=== PATIENT | female | born 1950 | race Caucasian/White ===

== ENCOUNTER → 2016-12-16 | Outpatient (CLI) | payer OTHER ==
--- NOTE | 2016-12-22 15:11 | RADONC ---
RADIATION ONCOLOGY FOLLOWUP NOTE: DATE OF SERVICE: 12/16/2016 CHART NO: [id number]. DIAGNOSIS: Right breast cancer. 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 The patient presents today reporting that she is doing quite well with no complaints at this time related to her radiation therapy or disease. She has no breast or bone pain. REVIEW OF SYSTEMS: The patient's review of systems is noncontributory. Denies nausea, vomiting, fevers, chills, night sweats, diplopia, headaches, anxiety or depression, anorexia, weight loss, visual disturbances, chest pain, urinary or bowel difficulties, bone pain, or neurological problems. PHYSICAL EXAMINATION: The patient is a well-developed, well-nourished female in no acute distress. HEENT exam is normocephalic, atraumatic. Extraocular movements are intact. There is no palpable cervical, supraclavicular, infraclavicular, axillary, or inguinal lymphadenopathy present. Lungs are clear to auscultation and percussion. Heart has a regular rate and rhythm. Abdomen is benign with no hepatosplenomegaly, masses, or tenderness. Breast examination reveals no masses or discharge bilaterally. Skeletal examination reveals no tenderness to pressure or percussion of the bony skeleton. Extremities reveal no clubbing, cyanosis, or edema. Neurologic exam is grossly intact, as is the remainder of the physical examination. ASSESSMENT: The patient is clinically JYOTI at this time and will be seen by us again in 6 months for further followup. She will also continue to be followed by her other physicians as well. cc: Herber Rossi MD *Temi Montes De Oca MD
== END ==
LOC: M ONCR 10:17
PROVIDERS: ATTEND Radiology Radiation Oncology
DX: Z08 Encounter for follow-up examination after completed treatment for malignant neoplasm (principal); C50.111 Malignant neoplasm of central portion of right female breast

== ENCOUNTER → 2017-02-22 | Outpatient (CLI) | payer MEDICARE, OTHER ==
--- NOTE | 2017-02-22 10:42 | REPMRS ---
Patient History The patient states she had a clinical breast exam in November 2016.Patient is postmenopausal and has history of cancer in the right breast at age 63. Family history of unknown cancer in father and breast cancer in mother. Malignant radio exam breast specimen of the right breast, April 18, 2013. Malignant localization of breast nodule of the right breast, April 18, 2013. Malignant stereotatic breast biopsy of the right breast, March 08, 2013. Benign stereotactic core biopsy of the left breast, 2004. Taking tamoxifen for 1 year 10 months. Digital Mammo Screening Bilat: February 22, 2017 - Exam #: [id number] Bilateral CC and MLO view(s) were taken. Technologist: Ximena Roberts, Technologist Prior study comparison: February 20, 2016, bilateral digital mammo screening bilat performed at [facility]. February 18, 2015, bilateral digital mammo screening bilat performed at [facility]. February 16, 2014, bilateral digital mammo screening bilat performed at [facility]. FINDINGS: There are scattered fibroglandular densities. There has been no change in the appearance of the mammogram from the prior studies. There is a needle biopsy marker clip in the left breast. There are stable post treatment changes in the right breast. There is a mild amount of scattered fibroglandular density which is fairly symmetric. There is no interval development of dominant mass, architectural distortion, or clustered microcalcification suggestive of malignancy. ASSESSMENT: BI-RADS/ACR category 1 mammogram. Negative. Recommendation Routine screening mammogram in 1 year (for women over age 40). This mammogram was interpreted with the aid of an FDA-approved computer-aided dectection system. Electronically Signed By: Yaw Rick MD 02/22/17 1042
== END ==
LOC: M RAD 10:03
PROVIDERS: ATTEND Radiology Radiation Oncology
DX: Z12.31 Encounter for screening mammogram for malignant neoplasm of breast (principal); Z85.3 Personal history of malignant neoplasm of breast

== ENCOUNTER → 2017-03-11 | Outpatient (CLI) | payer MEDICARE, OTHER ==
--- NOTE | 2017-03-11 17:03 | REP ---
PELVIC ULTRASOUND: Real-time sonographic evaluation of the pelvis was performed utilizing transabdominal and endovaginal technique. The bladder measures 9.8 x 10.0 x 11.7 cm. The uterus measures 9.6 x 5.4 x 8.6 cm. The endometrium is markedly thickened and heterogenous with multiple tiny cystic areas throughout. Endometrium measures 3 cm in maximum AP dimension. A focal hypoechoic area within the endometrial echo complex measures 3.9 x 3.4 x 3.4 cm, possibly representing a submucosal fibroid or polyp. Ovaries appear normal in size and echotexture, right ovary measuring 2.1 x 1.4 x 2.6 cm and left ovary 2.5 x 1.6 x 1.2 cm. There is no adnexal mass or free fluid. IMPRESSION: Markedly thickened endometrial echo complex with a maximum AP thickness of 3 cm. There is diffuse heterogeneity with multiple tiny cystic areas. Patient has post menopausal bleeding but also reportedly is on Tamoxifen therapy. Even though she is on Tamoxifen therapy, the history of postmenopausal bleeding and significant endometrial thickening may require hysteroscopy and endometrial sampling. In addition there is a suspected polyp or submucosal fibroid in the endometrium measuring 3.9 cm in maximum diameter.
== END ==
LOC: M WHC 13:50
PROVIDERS: ATTEND Nurse Practitioner Family
DX: Z51.81 Encounter for therapeutic drug level monitoring (principal); Z79.810 Long term (current) use of selective estrogen receptor modulators (SERMs); N95.0 Postmenopausal bleeding

== ENCOUNTER → 2017-04-13 | Outpatient (CLI) | payer MEDICARE, OTHER ==
[~2017-04-13] MED LIST: BIOT50005 PO; BLAC40CA2 PO; CALC600T57 PO; D 50CAP PO; MULT1TAB10 PO; TAMO20TA4 PO
--- NOTE | 2017-04-14 09:10 | DEXA ---
AP SPINE L1 - L4 1.203 0.1 1.7 LT FEMUR TOTAL 0.942 -0.5 0.7 RT FEMUR TOTAL 0.991 -0.1 1.1 TOTAL BODY TOTAL OTHER DUAL FEMUR FRAX* ASSESSMENT Risk factors: None. 10 year probability of fracture Major osteoporotic fracture 7.0 % Hip fracture 0.3 % COMMENTS: Normal bone densitometry of the spine and hips. The decreased density of the spine does not represent a significant change. The decreased density of the left hip does not represent a significant change. The increased density of the right hip does not represent a significant change. The density of the spine is decreased 4.4% since the initial exam on 05/26/2007. The spine density has decreased 0.2% since the most recent exam on 02/11/2012. The density of the left hip has decreased 3.0% since the initial exam on 2006. The density of the left hip has decreased 0.4% since the most recent exam on . The density of the right hip has decreased 1.8% since the initial exam on 2006. The density of the right hip has increased 0.4% since the most recent exam on . FOLLOW-UP: Recommendation for the next bone density exam: 5 years. GENEVIEVE
== END ==
LOC: M WHC 08:27
PROVIDERS: ATTEND Nurse Practitioner Family
DX: Z78.0 Asymptomatic menopausal state (principal); E28.39 Other primary ovarian failure; M85.88 Other specified disorders of bone density and structure, other site; M85.851 Other specified disorders of bone density and structure, right thigh; M85.852 Other specified disorders of bone density and structure, left thigh

== ENCOUNTER → 2017-04-15 | Day surgery (SDC) | payer MEDICARE, OTHER ==
[~2017-04-15] VITALS: Ht 172.7 cm; Wt 82.6 kg
[~2017-04-15] MED LIST changes: +IBUPROFEN 600 MG TAB PO PRN; +KETOROLAC 60 MG/2 ML VIAL (J1885) As Ordered ONE; +LIDOCAINE 2% INJ 100 MG/5 ML SDV (FOR ANES.) As Ordered ONE; +LR 1,000 ML IV ONE; +LR 1,000 ML IV SCH; +MEPERIDINE INJ 25 MG/ML VIAL (J2175) IV PRN; +METOCLOPRAMIDE INJ 10MG/2ML VIAL (J2765) IV PRN; +MIDAZOLAM INJ 2 MG/2 ML VIAL (J2250) As Ordered ONE; +ONDANSETRON 4MG/2ML VIAL (J2405) As Ordered ONE; +ONDANSETRON 4MG/2ML VIAL (J2405) IV PRN; +PERCOCET 5MG/325MG TAB PO PRN; +PROPOFOL 200 MG/20 ML VIAL As Ordered ONE; +dexameTHASONE 4 MG/ML 1ML VIAL (J1100) As Ordered ONE; +fentaNYL 100 MCG/2 ML INJECTION (J3010) As Ordered ONE; +fentaNYL 100 MCG/2 ML INJECTION (J3010) IV PRN
[2017-04-15 11:40] VITALS: BP 126/62
--- NOTE | 2017-04-16 15:17 | RO ---
DATE OF PROCEDURE: 04/15/2017 PREPROCEDURE DIAGNOSES/INDICATION FOR SURGERY: Postmenopausal bleeding and abnormal ultrasound, suspected fibroids. POSTPROCEDURE DIAGNOSES: Postmenopausal bleeding and abnormal ultrasound, suspected fibroids with confirmed submucosal fibroids in the endometrial cavity. PROCEDURE: Dilation and curettage (D and C), hysteroscopy and myomectomy. SURGEON: Dr. Liz Matthews CUPOLA REPAIRER: ANESTHESIA: LMA. DESCRIPTION OF PROCEDURE: Yolanda was brought to the operating room where sufficient LMA anesthesia was induced, and she was prepped, draped and positioned in the usual sterile fashion with the bladder emptied. She had a pessary in and so of course we took that out, prepped and then did the case and put it in after the case. At this point, I took the pessary out and grasped the anterior aspect of the cervix, dilated the cervix in order to allow the XL MyoSure to be placed and we found a large polypoid shaped submucosal fibroid sticking into the cavity. Initially I thought that this might be a polyp but with resection we were able to see myoma tissue. Also, at the fundus there was a second smaller myoma. We went ahead and placed the XL MyoSure. We removed the smaller myoma first. We had a view and then worked our way across the stalk of the larger myoma and then carefully chunked it up and removed it. There were some pictures to document this. There was a little bit of oozing from the base where we had taken off the base of that fibroid. Then did curettage and then massaged the uterus to squeeze it back down around this space now that it was no longer filled with myoma and then replaced the pessary at the end of the case. Estimated blood loss for the procedure was about 5 mL. Fluid replacement was crystalloid. Complications: None. Condition and Disposition: Yolanda tolerated the procedure well and was recovering in the recovery room in good condition.
== END | disposition home or self-care (01) ==
LOC: M SDC 06:57
PROVIDERS: ATTEND Obstetrics & Gynecology
DX: N95.0 Postmenopausal bleeding (principal); N84.0 Polyp of corpus uteri; D25.9 Leiomyoma of uterus, unspecified; Z92.3 Personal history of irradiation; Z85.3 Personal history of malignant neoplasm of breast; Z79.899 Other long term (current) drug therapy
CPT/HCPCS: 58145; 58558; 88305; J1100; J1885; J2250; J2405; J3010

== ENCOUNTER → 2017-07-14 | Outpatient (CLI) | payer MEDICARE, OTHER ==
[~2017-07-14] MED LIST changes: -IBUPROFEN 600 MG TAB PO PRN; -KETOROLAC 60 MG/2 ML VIAL (J1885) As Ordered ONE; -LIDOCAINE 2% INJ 100 MG/5 ML SDV (FOR ANES.) As Ordered ONE; -LR 1,000 ML IV ONE; -LR 1,000 ML IV SCH; -MEPERIDINE INJ 25 MG/ML VIAL (J2175) IV PRN; -METOCLOPRAMIDE INJ 10MG/2ML VIAL (J2765) IV PRN; -MIDAZOLAM INJ 2 MG/2 ML VIAL (J2250) As Ordered ONE; -ONDANSETRON 4MG/2ML VIAL (J2405) As Ordered ONE; -ONDANSETRON 4MG/2ML VIAL (J2405) IV PRN; -PERCOCET 5MG/325MG TAB PO PRN; -PROPOFOL 200 MG/20 ML VIAL As Ordered ONE; -dexameTHASONE 4 MG/ML 1ML VIAL (J1100) As Ordered ONE; -fentaNYL 100 MCG/2 ML INJECTION (J3010) As Ordered ONE; -fentaNYL 100 MCG/2 ML INJECTION (J3010) IV PRN
--- NOTE | 2017-07-15 13:09 | RADONC ---
RADIATION ONCOLOGY FOLLOWUP DATE: 07/14/2017 CHART NUMBER: [id number] DIAGNOSIS: Right breast cancer. STAGE: Stage is 0, [id number] ECOG PERFORMANCE STATUS: 0 Ms Silverio is a very pleasant 67-year-old white female with the diagnosis of a stage 0, [id number] ductal carcinoma in situ of the right breast who is presenting to us today for routine followup visit 4 years post completion of external beam radiation therapy. The patient presents today reporting that she is doing quite well with no complaints at this time related to her radiation therapy or disease. She has no breast or bone pain. REVIEW OF SYSTEMS: The patient's review of systems is noncontributory. Denies nausea, vomiting, fevers, chills, night sweats, diplopia, headaches, anxiety or depression, anorexia, weight loss, visual disturbances, chest pain, urinary or bowel difficulties, bone pain, or neurological problems. PHYSICAL EXAMINATION: The patient is a well-developed, well-nourished female in no acute distress. HEENT exam is normocephalic, atraumatic. Extraocular movements are intact. There is no palpable cervical, supraclavicular, infraclavicular, axillary, or inguinal lymphadenopathy present. Lungs are clear to auscultation and percussion. Heart has a regular rate and rhythm. Abdomen is benign with no hepatosplenomegaly, masses, or tenderness. Breast examination reveals no masses or discharge bilaterally. Skeletal examination reveals no tenderness to pressure or percussion of the bony skeleton. Extremities reveal no clubbing, cyanosis, or edema. Neurologic exam is grossly intact, as is the remainder of the physical examination. ASSESSMENT: The patient is clinically JYOTI at this time and will be seen by us again in 6 months for further followup. She will also continue to be followed by her other physicians as well. cc: MD Temi Clark MD
== END ==
LOC: M ONCR 08:55
PROVIDERS: ATTEND Radiology Radiation Oncology
DX: Z08 Encounter for follow-up examination after completed treatment for malignant neoplasm (principal); Z85.3 Personal history of malignant neoplasm of breast

== ENCOUNTER → 2017-07-14 | Outpatient (CLI) | payer MEDICARE, OTHER ==
[2017-07-14 09:32] LABS: ANION GAP 9 MEQ/L (8-16); BLOOD UREA NITROGEN 16 MG/DL (7-18); CALCIUM LEVEL 8.6 MG/DL (8.8-10.2); CARBON DIOXIDE LEVEL 28 MEQ/L (21-32); CHLORIDE LEVEL 104 MEQ/L (98-107); CHOLESTEROL LEVEL 181 MG/DL (<200); CREATININE FOR GFR 0.74 MG/DL (0.55-1.02); FREE T4 1.11 NG/DL (0.76-1.46); GLOMERULAR FILTRATION RATE > 60.0 (>45); GLUCOSE, FASTING 95 MG/DL (80-110); POTASSIUM SERUM 4.3 MEQ/L (3.5-5.1); SODIUM LEVEL 141 MEQ/L (136-145); TRIGLYCERIDES LEVEL 141 MG/DL (<150)
== END ==
LOC: M WUC 08:15
PROVIDERS: ATTEND Physician Assistant Medical
DX: R73.01 Impaired fasting glucose (principal); R94.6 Abnormal results of thyroid function studies; E55.9 Vitamin D deficiency, unspecified
CPT/HCPCS: 36415; 80048; 80061; 82306; 84439; 84443; G0463

== ENCOUNTER → 2017-07-28 | Outpatient (REF) | payer MEDICARE, OTHER | LOC: M LAB REF 16:21 | PROVIDERS: ATTEND Obstetrics & Gynecology | DX: N32.81 Overactive bladder (principal); N39.46 Mixed incontinence; N81.11 Cystocele, midline ==

== ENCOUNTER → 2018-01-05 | Outpatient (CLI) | payer MEDICARE, OTHER | LOC: M ONCR 09:10 | DX: D05.11 Intraductal carcinoma in situ of right breast (principal) | CPT/HCPCS: G0463 ==

== ENCOUNTER → 2018-03-02 | Outpatient (CLI) | payer MEDICARE, OTHER | LOC: M RAD 08:24 | DX: Z12.31 Encounter for screening mammogram for malignant neoplasm of breast (principal); N60.31 Fibrosclerosis of right breast; N60.32 Fibrosclerosis of left breast | CPT/HCPCS: 77067 ==

== ENCOUNTER → 2018-12-22 | Outpatient (CLI) | payer MEDICARE, OTHER ==
[~2018-12-22] MED LIST changes: -TAMO20TA4 PO; +TAMO20TA8 PO
--- NOTE | 2018-12-22 15:11 | REP ---
Clinical: Postmenopausal bleeding . Technique: Transabdominal pelvic ultrasound followed by transvaginal examination for better evaluation of the endometrium and adnexa. Findings: Bladder is unremarkable and measures 10.6 x 10.6 x 9.5 cm . Heterogeneous retroverted uterus measures 9.4 x 5.2 x 8.0 cm. The endometrial complex is heterogeneous and thickened measuring between 11.5 and 28.1 mm. Along the left side of the endometrium is a vague heterogeneous mass measuring approximately 4.2 x 3.2 x 3.6 cm which may reflect submucosal fibroid or possible endometrial lesion such as mass/polyp. Bilateral ovaries are normal in appearance. Right ovary measures 2.7 x 1.7 x 1.7 cm ; Left ovary measures 2.1 x 1.3 x 1.1 cm. No pelvic fluid or adnexal mass lesion . Impression: 1. Heterogeneous retroverted uterus with considerably thickened endometrium and possible submucosal fibroid versus endometrial mass/polyp. 2. Bilateral ovaries appear normal.
== END ==
LOC: M WHC 12:55
PROVIDERS: ATTEND Nurse Practitioner Family
DX: N95.0 Postmenopausal bleeding (principal); R93.89 Abnormal findings on diagnostic imaging of other specified body structures; N85.4 Malposition of uterus; R19.09 Other intra-abdominal and pelvic swelling, mass and lump

== ENCOUNTER → 2019-01-18 | Outpatient (REF) | payer MEDICARE, OTHER ==
[~2019-01-18] MED LIST changes: +MULTCAP PO
[2019-01-18 19:09] LABS: ALBUMIN 3.8 GM/DL (3.2-5.2); ALT/SGPT 30 U/L (12-78); BILIRUBIN,TOTAL 0.3 MG/DL (0.2-1.0); BLOOD UREA NITROGEN 17 MG/DL (7-18); CALCIUM LEVEL 8.8 MG/DL (8.8-10.2); CARBON DIOXIDE LEVEL 28 MEQ/L (21-32); CHLORIDE LEVEL 105 MEQ/L (98-107); CREATININE FOR GFR 0.75 MG/DL (0.55-1.30); GLOMERULAR FILTRATION RATE > 60.0 (>45); GLUCOSE, FASTING 85 MG/DL (70-100); POTASSIUM SERUM 4.2 MEQ/L (3.5-5.1); SODIUM LEVEL 141 MEQ/L (136-145); TOTAL PROTEIN 7.4 GM/DL (6.4-8.2)
[2019-01-18 19:18] LABS: BASO # 0.1 10^3/uL (0.0-0.2); BASO % 0.7 % (0.0-1.0); EOS # 0.2 10^3/uL (0.0-0.50); EOS % 2.5 % (0.0-3.0); HEMOGLOBIN 12.3 g/dl (12.0-15.5); LYMPH # 2.8 10^3/uL (1.5-4.5); LYMPH % 29.7 % (24.0-44.0); MEAN CORPUSCULAR HEMOGLOBIN 28.6 pg (27.0-33.0); MEAN CORPUSCULAR HGB CONC 31.5 g/dl (32.0-36.5); MEAN CORPUSCULAR VOLUME 90.7 fl (80.0-96.0); MONO # 0.8 10^3/uL (0.0-0.8); NEUTROPHILS # 5.6 10^3/uL (1.8-7.7); NEUTROPHILS % 58.7 % (36.0-66.0); PLATELET COUNT, AUTOMATED 273 10^3/uL (150-450); WHITE BLOOD COUNT 9.6 10^3/uL (4.0-10.0)
== END ==
LOC: M LAB REF 17:12 → M WUC 17:12
PROVIDERS: ATTEND Family Medicine
DX: Z01.818 Encounter for other preprocedural examination (principal); N95.0 Postmenopausal bleeding

== ENCOUNTER 2019-02-02 08:20 | Day surgery (SDC) | payer MEDICARE, OTHER ==
[~2019-02-02] VITALS: Ht 172.7 cm; Wt 92.9 kg
[2019-02-02] MEDS ORDERED: LR 1,000 ML IV ONE (08:30)
[2019-02-02] MEDS ORDERED: SCOPOLAMINE 1MG TRANSDERMAL PATCH TOP ONE (09:00)
[2019-02-02] MEDS ORDERED: ONDANSETRON 4MG/2ML VIAL (J2405) As Ordered ONE (09:02)
[2019-02-02] MEDS ORDERED: LIDOCAINE 2% INJ 100 MG/5 ML SDV (FOR ANES.) As Ordered ONE (09:02)
[2019-02-02] MEDS ORDERED: KETOROLAC 60 MG/2 ML VIAL (J1885) As Ordered ONE (09:02)
[2019-02-02] MEDS ORDERED: dexameTHASONE 4 MG/ML 1ML VIAL (J1100) As Ordered ONE (09:02)
[2019-02-02] MEDS ORDERED: PROPOFOL 200 MG/20 ML VIAL As Ordered ONE (09:02)
[2019-02-02] MEDS ORDERED: MIDAZOLAM INJ 2 MG/2 ML VIAL (J2250) As Ordered ONE (09:02)
[2019-02-02] MEDS ORDERED: fentaNYL 100 MCG/2 ML INJECTION (J3010) As Ordered ONE (09:03)
[2019-02-02] MEDS ORDERED: ACETAMINOPHEN 1000MG 100ML IV BTL (OFIRMEV) (J0131 PER 10MG) As Ordered ONE (10:11)
--- NOTE | 2019-02-02 10:56 | RO ---
DATE OF SURGERY: 02/02/2019 PREOPERATIVE DIAGNOSIS AND INDICATION FOR SURGERY: Postmenopausal bleeding with abnormal ultrasound. POSTOPERATIVE DIAGNOSES: Postmenopausal bleeding with abnormal ultrasound with additional diagnosis of fibroid. PROCEDURE: Dilation and curettage (D and C), hysteroscopy, myomectomy. SURGEON: Liz Matthews MD [employer] CONSULTANT: None. ANESTHESIA: Laryngeal mask airway (LMA) anesthesia. BRIEF DESCRIPTION OF PROCEDURE AND FINDINGS: Yolanda was brought to the operating room, where sufficient LMA anesthesia was induced. She was prepped, draped, and positioned in the usual sterile fashion with the bladder emptied and the cervix grasped with a single-tooth tenaculum. This uterus would be accessible from below should that become necessary in the future. The cervix was carefully dilated in order to allow introduction of the hysteroscope, which showed a large broad-based fibroid covering almost the whole left lateral aspect of the uterus, as is documented in the photograph. We placed the MyoSure REACH and slowly resected this entity. We were able to just gradually work our way through this broad-based fibroid and remove it. We also sampled the endometrium and carried out curettage and then ended the procedure. Estimated blood loss for the procedure was maybe 5 mL. Fluid replacement was crystalloid. COMPLICATIONS: None. SPECIMENS: Fibroid and some endometrium. CONDITION AND DISPOSITION: Yolanda tolerated the procedure well and was recovering in the recovery room in good condition.
[2019-02-02] MEDS ORDERED: LR 1,000 ML IV SCH ×2 (11:15)
[2019-02-02] MEDS ORDERED: oxyCODONE 5MG TAB PO PRN (11:15)
[2019-02-02] MEDS ORDERED: fentaNYL 100 MCG/2 ML INJECTION (J3010) IV PRN (11:15)
[2019-02-02] MEDS ORDERED: IBUPROFEN 600 MG TAB PO PRN (11:15)
[2019-02-02] MEDS ORDERED: ONDANSETRON 4MG/2ML VIAL (J2405) IV PRN (11:15)
[2019-02-02 12:05] VITALS: BP 137/63
--- NOTE | 2019-02-02 16:15 | RO ---
DATE OF PROCEDURE: 02/02/2019 PREOPERATIVE DIAGNOSES/INDICATION FOR SURGERY: Bleeding, abnormal sono. POSTOPERATIVE DIAGNOSES: Bleeding, abnormal sono, large fibroid. PROCEDURE: Dilation and curettage (D and C), hysteroscopy, myomectomy. SURGEON: Liz Matthews MD BROTHEL KEEPER: None. ANESTHESIA: Laryngeal mask airway (LMA). BRIEF DESCRIPTION OF PROCEDURE AND FINDINGS: Yolanda was brought to the operating room where sufficient LMA anesthesia was induced. She was prepped, draped and positioned in the usual sterile fashion with the bladder emptied and the cervix grasped with a single-tooth tenaculum. This uterus would be accessible from below should that become necessary in the future. The cervix was then carefully dilated in order to allow introduction of the hysteroscope and they MyoSure REACH resector was place after a large fibroid extending along the left lower aspect of the uterus. It was noted this that was resected in its entirety. Pictures were taken to document this progress, and after completion of that we also sampled endometrium, following which, the procedure was ended. Estimated blood loss for procedure was maybe 8 mL. Fluid replacement was crystalloid. Complications none. CONDITION AND DISPOSITION: Yolanda tolerated the procedure well and was recovering in the recovery room in good condition.
== END 2019-02-02 12:16 | disposition home or self-care (01) ==
LOC: M SDC 08:20
PROVIDERS: ATTEND Obstetrics & Gynecology
DX: N95.0 Postmenopausal bleeding (principal); N85.01 Benign endometrial hyperplasia; Z85.3 Personal history of malignant neoplasm of breast; Z92.3 Personal history of irradiation
CPT/HCPCS: 58145; 58558; 88305; J0131; J1100; J1885; J2250; J2405; J3010

== ENCOUNTER → 2019-03-06 | Outpatient (CLI) | payer MEDICARE, OTHER ==
--- NOTE | 2019-03-06 08:55 | REPMRS ---
Patient History The patient states she had a clinical breast exam in December 2018. Patient is postmenopausal and has history of cancer in the right breast at age 63. Family history of breast cancer in mother, unknown cancer in father. Malignant radio exam breast specimen of the right breast, April 18, 2013. Malignant localization of breast nodule of the right breast, April 18, 2013. Malignant stereotatic breast biopsy of the right breast, March 08, 2013. Benign stereotactic core biopsy of the left breast, 2004. Took tamoxifen for 1 year 10 months. 3D TOMOSYNTHESIS WAS PERFORMED. Digital Mammo Screening Bilat: March 06, 2019 - Exam #: [id number] Bilateral CC and MLO view(s) were taken. Technologist: Leida Mckenzie, Technologist Prior study comparison: March 02, 2018, bilateral digital mammo screening bilat performed at [facility]. February 22, 2017, bilateral digital mammo screening bilat performed at [facility]. FINDINGS: The breast tissue is heterogeneously dense. This may lower the sensitivity of mammography. There has been no change in the appearance of the mammogram from the prior studies. There is a moderate amount of residual fibroglandular tissue which is fairly symmetric. There is no interval development of dominant mass, areas of architectural distortion, or clustered microcalcification typical of malignancy. Assessment: BI-RADS/ACR category 1 mammogram. Negative Mammogram. Recommendation Routine screening mammogram in 1 year (for women over age 40). This mammogram was interpreted with the aid of an FDA-approved computer-aided dectection system. Electronically Signed By: Jose Izaguirre MD 03/06/19 0839
== END ==
LOC: M RAD 08:14
PROVIDERS: ATTEND Radiology Radiation Oncology
DX: Z12.31 Encounter for screening mammogram for malignant neoplasm of breast (principal); Z85.3 Personal history of malignant neoplasm of breast; Z80.3 Family history of malignant neoplasm of breast

== ENCOUNTER → 2019-05-26 | Outpatient (REF) | payer MEDICARE, OTHER | LOC: M SFHCWAGY 09:58 | PROVIDERS: ATTEND Nurse Practitioner Family | DX: Z12.4 Encounter for screening for malignant neoplasm of cervix (principal) | CPT/HCPCS: G0101; G0123 ==

== ENCOUNTER → 2019-12-08 | Outpatient (CLI) | payer MEDICARE, OTHER ==
--- NOTE | 2019-12-08 14:43 | REP ---
PELVIC SONOGRAPHY: HISTORY: History of postmenopausal bleeding. Status post D and C 1 year prior. Comparison study December 22, 2018. FINDINGS: The uterus is retroverted and has dimensions of 8.5 x 4.5 x 6.9 cm. Endometrial echo is 1.1 cm thick. It is somewhat ill-defined. There are two echogenic structures visualized in the endometrial canal measuring 1.3 and 1.2 cm in greatest diameter respectively. Uterine myometrium is heterogeneous similar to the prior study. There is evidence of a left uterine fibroid measuring 3.1 x 3.4 x 2.9 cm. There is a fundal hypoechoic area measuring 2.1 x 1.5 x 1.5 cm. In the lower uterine segment there is a 1.4 cm fibroid. Normal right ovary seen measuring 2.8 x 1.2 x 1.1 cm. Left ovary dimensions are 2.7 x 1.2 x 1.0 cm. There is a 0.6 cm cystic area in the left ovary. No free fluid is noted. IMPRESSION: Retroverted fibroid uterus. There are two endometrial nodular structures suggestive of endometrial polyps versus submucosal fibroids. Endometrial thickness 1.1 cm. Unremarkable ovaries.
== END ==
LOC: M WHC 12:55
PROVIDERS: ATTEND Obstetrics & Gynecology
DX: N95.0 Postmenopausal bleeding (principal); D25.9 Leiomyoma of uterus, unspecified

== ENCOUNTER → 2020-01-03 | Outpatient (CLI) | payer MEDICARE, OTHER ==
--- NOTE | 2020-01-03 10:35 | RADONC ---
RADIATION ONCOLOGY FOLLOWUP NOTE DATE OF SERVICE: 01/03/2020 This is a telemedicine visit. The patient was informed of the risks including security breech, technological failure, inability to perform a comprehensive physical exam which could delay or prevent an accurate diagnosis, and potential complications from treatment decisions rendered over a telemedicine platform. The patient understands and consented to the use of telehealth services phone only. CHART NUMBER: [id number] DIAGNOSIS: Right breast cancer. STAGE: Stage 0, [id number] ECOG PERFORMANCE STATUS: 0. FOLLOWUP NOTE: Ms. Silverio is a very pleasant 70-year-old white female with the diagnosis of a stage 0, [id number] ductal carcinoma in situ of the right breast who is presenting to us by telephone today for routine followup visit 7 years post completion of external beam radiation therapy. The patient reports that she is doing quite well with no complaints at this time related to her radiation therapy disease. She has no significant breast or bone pain. The patient's review of systems is noncontributory. Denies nausea, vomiting, fevers, chills, night sweats, diplopia, headaches, anxiety or depression, anorexia, weight loss, visual disturbances, chest pain, urinary or bowel difficulties, bone pain, or neurological problems. PHYSICAL EXAMINATION Physical examination was deferred as this was a telephone consult, as per COVID-19 precautions. ASSESSMENT: Ms. Silverio is doing quite well at this point. She is scheduled to see her primary care Dr. Temi Montes De Oca tomorrow, and I have asked to have Dr. Bosch scheduled her routine mammograms. I will be retiring within the next 3 months or so and this patient is 7 years out. She can continue her routine followup with her primary care physician. I am not ordering a new mammogram myself because the results may come after I have departed and I want to make sure that they are received by her primary care doctor. cc: MD Temi Clark MD
== END ==
LOC: M ONCR 09:56
PROVIDERS: ATTEND Radiology Radiation Oncology
DX: D05.11 Intraductal carcinoma in situ of right breast (principal); Z92.3 Personal history of irradiation

== ENCOUNTER → 2020-01-04 | Outpatient (CLI) | payer MEDICARE, OTHER ==
[2020-01-04 12:50] LABS: BASO # 0.1 10^3/uL (0.0-0.2); BASO % 0.8 % (0.0-1.0); EOS # 0.2 10^3/uL (0.0-0.5); EOS % 1.8 % (0.0-3.0); HEMATOCRIT 38.5 % (36.0-47.0); HEMOGLOBIN 12.9 g/dl (12.0-15.5); LYMPH # 2.3 10^3/uL (1.5-5.0); LYMPH % 25.5 % (24.0-44.0); MEAN CORPUSCULAR HEMOGLOBIN 29.6 pg (27.0-33.0); MEAN CORPUSCULAR HGB CONC 33.5 g/dl (32.0-36.5); MEAN CORPUSCULAR VOLUME 88.3 fl (80.0-96.0); MONO # 0.6 10^3/uL (0.0-0.8); MONO % 6.9 % (0.0-5.0); NEUTROPHILS # 5.8 10^3/uL (1.5-8.5); NEUTROPHILS % 64.8 % (36.0-66.0); PLATELET COUNT, AUTOMATED 288 10^3/uL (150-450); RED BLOOD COUNT 4.36 10^6/uL (4.00-5.40)
[2020-01-04 13:03] LABS: INR 1.13; PROTHROMBIN TIME 14.2 SECONDS (11.8-14.0)
[2020-01-04 13:04] LABS: PARTIAL THROMBOPLASTIN TIME 27.7 SECONDS (25.0-38.4)
[2020-01-04 13:36] LABS: ALBUMIN 3.8 GM/DL (3.2-5.2); ALT/SGPT 22 U/L (12-78); BILIRUBIN,TOTAL 0.5 MG/DL (0.2-1.0); BLOOD UREA NITROGEN 12 MG/DL (7-18); CALCIUM LEVEL 9.1 MG/DL (8.8-10.2); CARBON DIOXIDE LEVEL 28 MEQ/L (21-32); CHLORIDE LEVEL 106 MEQ/L (98-107); CREATININE FOR GFR 0.75 MG/DL (0.55-1.30); GLOMERULAR FILTRATION RATE > 60.0 (>45); GLUCOSE, FASTING 94 MG/DL (70-100); POTASSIUM SERUM 4.2 MEQ/L (3.5-5.1); SODIUM LEVEL 140 MEQ/L (136-145); TOTAL PROTEIN 7.7 GM/DL (6.4-8.2)
== END ==
LOC: M WUC 11:26
PROVIDERS: ATTEND Nurse Practitioner Family
DX: Z01.818 Encounter for other preprocedural examination (principal)

== ENCOUNTER 2020-01-11 06:01 | Day surgery (SDC) | payer MEDICARE, OTHER ==
[~2020-01-11] VITALS: Ht 170.2 cm; Wt 95.7 kg
[~2020-01-11 06:01] MED LIST changes: +LIDOCAINE 1% MDV 20ML VIAL SQ PRN; +MEDR5TAB3 PO; +MYRB25TA PO
[2020-01-11] MEDS ORDERED: LR 1,000 ML IV ONE (06:15)
[2020-01-11] MEDS ORDERED: ONDANSETRON 4MG/2ML VIAL As Ordered ONE (07:06)
[2020-01-11] MEDS ORDERED: propofoL 200 MG/20 ML VIAL As Ordered ONE (07:06)
[2020-01-11] MEDS ORDERED: LIDOCAINE 2% 100MG/5ML SDV (FOR ANES.) As Ordered ONE (07:06)
[2020-01-11] MEDS ORDERED: dexameTHASONE 4 MG/ML 1ML VIAL (J1100 PER 1MG) As Ordered ONE (07:06)
[2020-01-11] MEDS ORDERED: SCOPOLAMINE 1MG TRANSDERMAL PATCH As Ordered ONE (07:06)
[2020-01-11] MEDS ORDERED: fentaNYL 100 MCG/2 ML INJECTION (J3010) As Ordered ONE (07:07)
[2020-01-11] MEDS ORDERED: MIDAZOLAM INJ 2MG/2ML VIAL (J2250 PER 1MG) As Ordered ONE (07:07)
[2020-01-11] MEDS ORDERED: SCOPOLAMINE 1MG TRANSDERMAL PATCH TOP ONE (07:15)
[2020-01-11] MEDS ORDERED: ACETAMINOPHEN 1000MG 100ML IV BTL (OFIRMEV) (J0131 PER 10MG) As Ordered ONE (07:46)
[2020-01-11] MEDS ORDERED: KETOROLAC 60 MG/2 ML VIAL As Ordered ONE (07:46)
[2020-01-11] MEDS ORDERED: ePHEDrine SULFATE 25 MG/5 ML(5MG/ML) SYRINGE As Ordered ONE (07:51)
[2020-01-11] MEDS ORDERED: IBUPROFEN 600 MG TAB PO PRN (08:30)
[2020-01-11] MEDS ORDERED: fentaNYL 100 MCG/2 ML INJECTION (J3010) IV PRN (08:30)
[2020-01-11] MEDS ORDERED: METOCLOPRAMIDE INJ 10MG/2ML VIAL (J2765 PER 1) IV PRN (08:30)
[2020-01-11] MEDS ORDERED: ONDANSETRON 4MG/2ML VIAL IV PRN (08:30)
[2020-01-11] MEDS ORDERED: LR 1,000 ML IV SCH ×2 (08:30)
[2020-01-11] MEDS ORDERED: PERCOCET 5MG/325MG TAB PO PRN (08:30)
--- NOTE | 2020-01-11 09:05 | RO ---
DATE OF PROCEDURE: 01/11/2020 PREPROCEDURE DIAGNOSES: Post menopausal bleeding, thickened endometrium. Significant history of breast cancer. POSTPROCEDURE DIAGNOSES: Post menopausal bleeding, thickened endometrium. Significant history of breast cancer. Additional diagnosis of what appears to have been a submucous fibroid. PROCEDURE: Dilation and curettage, hysteroscopy, myomectomy using the MyoSure device. SURGEON: Dr. Liz Matthews. WOOL PRESSER: None. ANESTHESIA: Laryngeal mask anesthesia (LMA). DESCRIPTION OF PROCEDURE: Yolanda was brought to the operating room where sufficient LMA anesthesia was induced. She was prepped, draped and positioned in the usual sterile fashion. Bladder was emptied. The cervix was grasped with a single tooth tenaculum. This patient does have some mild prolapse and the uterus was readily accessible from below. The cervix was carefully dilated and the MyoSure hysteroscope placed. Upon visualization of the endometrial cavity, some suppression consistent with her history of progesterone in the past was noted and along the patient's right lateral, slight to the posterior uterus, there is a couple of tiny polyps and then just to the left of midline posterior fundus, a broad-based, what appears to be submucous fibroid. Multiple pictures were taken and the MyoSure reach was used and using the reach, we dug out that posterior projection and the tissues appeared, as they were removed to be myoma as well both by picture and visual appearance. We also removed the tiny polyps, which were fairly avascular and really had a very reassuring appearance. We then sampled the rest of what was there for endometrium, which was not particularly much. The went ahead and did a couple passes with the curet before finishing the case. Pictures were taken to document our progress. With the procedure ended, ESTIMATED BLOOD LOSS: About 3 mL. FLUID REPLACEMENT: Crystalloid. SPECIMENS: Myoma and endometrium that when through the MyoSure collection. COMPLICATIONS: None. CONDITION AND DISPOSITION: Yolanda tolerated the procedure well and was recovering in the recovery room in good condition.
[2020-01-11 10:03] VITALS: BP 169/83
== END 2020-01-11 10:20 | disposition home or self-care (01) ==
LOC: M SDC 06:01
PROVIDERS: ATTEND Obstetrics & Gynecology
DX: D25.9 Leiomyoma of uterus, unspecified (principal); N84.9 Polyp of female genital tract, unspecified; N85.01 Benign endometrial hyperplasia; Z85.3 Personal history of malignant neoplasm of breast; R32 Unspecified urinary incontinence; Z92.3 Personal history of irradiation; Z79.899 Other long term (current) drug therapy; Z79.890 Hormone replacement therapy
CPT/HCPCS: 58558; 88305; J0131; J1100; J1885; J2250; J2405; J3010

== ENCOUNTER → 2020-03-07 | Outpatient (CLI) | payer MEDICARE, OTHER ==
[~2020-03-07] MED LIST changes: -LIDOCAINE 1% MDV 20ML VIAL SQ PRN
--- NOTE | 2020-03-07 14:26 | REPMRS ---
Patient History The patient states she has not had a clinical breast exam in over a year. Family history of breast cancer in mother, unknown cancer in father. Malignant radio exam breast specimen of the right breast, April 18, 2013. Malignant localization of breast nodule of the right breast, April 18, 2013. Malignant stereotatic breast biopsy of the right breast, March 08, 2013. Benign stereotactic core biopsy of the left breast, 2004. Took tamoxifen for 1 year 10 months. Digital Woman Screen Mammo: March 07, 2020 - Exam #: [id number] Bilateral CC and MLO view(s) were taken. Technologist: Leida Mckenzie, Technologist Prior study comparison: March 06, 2019, bilateral digital mammo screening bilat, performed at [facility]. March 02, 2018, bilateral digital mammo screening bilat, performed at [facility]. February 22, 2017, bilateral digital mammo screening bilat, performed at [facility]. FINDINGS: The breast tissue is heterogeneously dense. This may lower the sensitivity of mammography. The Volpara volumetric breast density category is: C. A needle biopsy marker clip is again noted on the left. There are stable post-treatment changes again noted on the right. There is a moderate amount of heterogeneously dense fibroglandular tissue which is fairly symmetric. There is no interval development of dominant mass, architectural distortion, or grouped microcalcification typical of malignancy. There has been no change in the appearance of the mammogram from the prior studies. 3-D tomosynthesis shows no additional findings. Assessment: BI-RADS/ACR category 2 mammogram. Benign Findings. Recommendation Routine screening mammogram of both breasts in 1 year (for women over age 40). This mammogram was interpreted with the aid of an FDA-approved computer-aided dectection system. Electronically Signed By: Yaw Rick MD 03/07/20 3513
== END ==
LOC: M WHC 12:51
PROVIDERS: ATTEND Nurse Practitioner Family
DX: Z12.31 Encounter for screening mammogram for malignant neoplasm of breast (principal); Z80.3 Family history of malignant neoplasm of breast

== ENCOUNTER → 2021-03-11 | Outpatient (CLI) | payer MEDICARE, OTHER ==
--- NOTE | 2021-03-11 08:43 | REPMRS ---
Patient History The patient states she had a clinical breast exam in May 2020. Family history of breast cancer in mother, unknown cancer in father. Malignant radio exam breast specimen of the right breast, April 18, 2013. Malignant localization of breast nodule of the right breast, April 18, 2013. Malignant stereotatic breast biopsy of the right breast, March 08, 2013. Benign stereotactic core biopsy of the left breast, 2004. Took tamoxifen for 1 year 10 months. Patient states no breast complaints today. Patient has signed MRS History Sheet. Digital Woman Screen Mammo: March 11, 2021 - Exam #: [id number] Bilateral CC and MLO view(s) were taken. Technologist: Yaneli Diego, Technologist Prior study comparison: March 07, 2020, bilateral digital woman screen mammo performed at [facility]. March 06, 2019, bilateral digital mammo screening bilat, performed at [facility]. March 02, 2018, bilateral digital mammo screening bilat, performed at [facility]. FINDINGS: The breast tissue is heterogeneously dense. This may lower the sensitivity of mammography. The Volpara volumetric breast density category is: C. Stable post treatment changes are again noted in the right breast. There is a moderate amount of heterogeneously dense fibroglandular tissue which is fairly symmetric. There is no interval development of dominant mass, architectural distortion, or grouped microcalcification typical of malignancy. There has been no change in the appearance of the mammogram from the prior studies. 3-D tomosynthesis shows no additional findings. Assessment: BI-RADS/ACR category 2 mammogram. Benign Findings. Recommendation Routine screening mammogram of both breasts in 1 year (for women over age 40). This mammogram was interpreted with the aid of an FDA-approved computer-aided dectection system. Electronically Signed By: Yaw Rick MD 03/11/21 [id number]
== END ==
LOC: M WHC 07:56
PROVIDERS: ATTEND Nurse Practitioner Family
DX: Z12.31 Encounter for screening mammogram for malignant neoplasm of breast (principal); Z80.3 Family history of malignant neoplasm of breast; Z85.3 Personal history of malignant neoplasm of breast

== ENCOUNTER → 2021-06-19 | Outpatient (CLI) | payer MEDICARE, OTHER ==
[2021-06-19 11:32] LABS: ALBUMIN 3.7 GM/DL (3.2-5.2); ALT/SGPT 21 U/L (12-78); BILIRUBIN,TOTAL 0.5 MG/DL (0.2-1.0); BLOOD UREA NITROGEN 18 MG/DL (7-18); CALCIUM LEVEL 8.6 MG/DL (8.8-10.2); CARBON DIOXIDE LEVEL 31 MEQ/L (21-32); CHLORIDE LEVEL 105 MEQ/L (98-107); CHOLESTEROL LEVEL 198 MG/DL (<200); CREATININE FOR GFR 0.84 MG/DL (0.55-1.30); GLOMERULAR FILTRATION RATE > 60.0 (>45); GLUCOSE, FASTING 94 MG/DL (70-100); HDL CHOLESTEROL 49 MG/DL (>40); LDL CHOLESTEROL 128 MG/DL (<100); NON-HDL-C 149 MG/DL; POTASSIUM SERUM 4.2 MEQ/L (3.5-5.1); SODIUM LEVEL 140 MEQ/L (136-145); TOTAL PROTEIN 7.4 GM/DL (6.4-8.2); TRIGLYCERIDES LEVEL 103 MG/DL (<150)
== END ==
LOC: M WUC 09:27
PROVIDERS: ATTEND Nurse Practitioner Family
DX: Z00.00 Encounter for general adult medical examination without abnormal findings (principal)

== ENCOUNTER → 2021-08-21 | Outpatient (CLI) | payer MEDICARE, OTHER ==
[~2021-08-21] MED LIST changes: +VITMTA PO
== END ==
LOC: M LABSMTC 09:07
PROVIDERS: ATTEND Anesthesiology
DX: Z01.812 Encounter for preprocedural laboratory examination (principal); Z20.822 Contact with and (suspected) exposure to COVID-19

== ENCOUNTER 2021-08-26 07:10 | Day surgery (SDC) | payer MEDICARE, OTHER ==
[~2021-08-26] VITALS: Ht 172.7 cm; Wt 91.4 kg
[~2021-08-26 07:10] MED LIST changes: +NS 1,000 ML IV ONE
[2021-08-26] MEDS ORDERED: propofoL 200 MG/20 ML VIAL As Ordered ONE (07:14)
[2021-08-26] MEDS ORDERED: LIDOCAINE 2% 100MG/5ML SDV (FOR ANES.) As Ordered ONE (07:14)
--- NOTE | 2021-08-26 08:58 | ROOR ---
Patient Name: Yolanda Silverio Procedure Date: 08/26/2021 8:20 AM Date of : 1950 Age: 71 Room: [facility] Gender: Female Note Status: Finalized Procedure: Colonoscopy Indications: High risk colon cancer surveillance: Personal history of colonic polyps Providers: Herber Rossi MD Referring MD: Temi Montes De Oca MD Requesting Provider: Medicines: Monitored Anesthesia Care Complications: No immediate complications. Procedure: Pre-Anesthesia Assessment: - Prior to the procedure, a History and Physical was performed, and patient medications and allergies were reviewed. The patient is competent. The risks and benefits of the procedure and the sedation options and risks were discussed with the patient. All questions were answered and informed consent was obtained. Patient identification and proposed procedure were verified by the physician, the nurse and the anesthesiologist in the endoscopy suite. Mental Status Examination: alert and oriented. Airway Examination: normal oropharyngeal airway and neck mobility. Respiratory Examination: clear to auscultation. CV Examination: normal. Prophylactic Antibiotics: The patient does not require prophylactic antibiotics. Prior Anticoagulants: The patient has taken no previous anticoagulant or antiplatelet agents. ASA Grade Assessment: III - A patient with severe systemic disease. After reviewing the risks and benefits, the patient was deemed in satisfactory condition to undergo the procedure. The anesthesia plan was to use monitored anesthesia care (MAC). Immediately prior to administration of medications, the patient was re-assessed for adequacy to receive sedatives. The heart rate, respiratory rate, oxygen saturations, blood pressure, adequacy of pulmonary ventilation, and response to care were monitored throughout the procedure. The physical status of the patient was re-assessed after the procedure. The Colonoscope was introduced through the anus and advanced to the cecum, identified by appendiceal orifice and ileocecal valve. The colonoscopy was performed without difficulty. The patient tolerated the procedure well. The quality of the bowel preparation was good. Findings: Hemorrhoids were found on perianal exam. Five sessile polyps were found in the sigmoid colon, transverse colon and hepatic flexure. The polyps were 1 to 3 mm in size. These polyps were removed with a cold snare. Resection and retrieval were complete. Estimated blood loss was minimal. No additional abnormalities were found on retroflexion. Impression: - Hemorrhoids found on perianal exam. - Five 1 to 3 mm polyps in the sigmoid colon, in the transverse colon and at the hepatic flexure, removed with a cold snare. Resected and retrieved. Recommendation: - Discharge patient to home (ambulatory). - Repeat colonoscopy in 5 years for surveillance. Procedure Code(s): --- Professional --- 84099, Colonoscopy, flexible; with removal of tumor(s), polyp(s), or other lesion(s) by snare technique Diagnosis Code(s): --- Professional --- Z86.010, Personal history of colonic polyps K64.9, Unspecified hemorrhoids K63.5, Polyp of colon CPT copyright 2019 [employer]. All rights reserved. The codes documented in this report are preliminary and upon assembler molded frames review may be revised to meet current compliance requirements. Herber Rossi MD Herber Rossi MD 08/26/2021 8:58:02 AM Electronically signed by Herber Rossi MD Number of Addenda: 0 Note Initiated On: 08/26/2021 8:20 AM Estimated Blood Loss: Estimated blood loss was minimal.
[2021-08-26 09:27] VITALS: BP 136/63
== END 2021-08-26 09:26 | disposition home or self-care (01) ==
LOC: M OPP 07:10
PROVIDERS: ATTEND Surgery
DX: Z12.11 Encounter for screening for malignant neoplasm of colon (principal); Z86.010 Personal history of colon polyps; K63.5 Polyp of colon; K64.8 Other hemorrhoids; Z79.899 Other long term (current) drug therapy; Z85.3 Personal history of malignant neoplasm of breast; N39.498 Other specified urinary incontinence

== ENCOUNTER → 2022-03-13 | Outpatient (CLI) | payer MEDICARE, OTHER ==
[~2022-03-13] MED LIST changes: -NS 1,000 ML IV ONE
== END ==
LOC: M WHC 08:00
PROVIDERS: ATTEND Nurse Practitioner Family
DX: Z12.31 Encounter for screening mammogram for malignant neoplasm of breast (principal)

== ENCOUNTER → 2022-06-23 | Outpatient (CLI) | payer MEDICARE, OTHER ==
[2022-06-23 11:01] LABS: BASO # 0.1 10^3/uL (0.0-0.2); BASO % 0.8 % (0.0-1.0); EOS # 0.2 10^3/uL (0.0-0.5); EOS % 2.6 % (0.0-3.0); HEMATOCRIT 40.5 % (36.0-47.0); MEAN CORPUSCULAR HEMOGLOBIN 28.7 pg (27.0-33.0); MEAN CORPUSCULAR HGB CONC 32.1 g/dl (32.0-36.5); MEAN CORPUSCULAR VOLUME 89.4 fl (80.0-96.0); MONO # 0.5 10^3/uL (0.0-0.8); MONO % 6.1 % (2.0-8.0); NEUTROPHILS # 5.6 10^3/uL (1.5-8.5); PLATELET COUNT, AUTOMATED 286 10^3/uL (150-450); RED BLOOD COUNT 4.53 10^6/uL (4.00-5.40); WHITE BLOOD COUNT 8.4 10^3/uL (4.0-10.0)
[2022-06-23 11:21] LABS: HEMOGLOBIN A1c 5.4 %
[2022-06-23 11:55] LABS: ALBUMIN 3.6 GM/DL (3.2-5.2); ALT/SGPT 20 U/L (12-78); BILIRUBIN,TOTAL 0.4 MG/DL (0.2-1.0); BLOOD UREA NITROGEN 14 MG/DL (7-18); CALCIUM LEVEL 8.8 MG/DL (8.8-10.2); CARBON DIOXIDE LEVEL 30 MEQ/L (21-32); CHLORIDE LEVEL 103 MEQ/L (98-107); CHOLESTEROL LEVEL 185 MG/DL (<200); CHOLESTEROL RISK RATIO 4.111 (<5); CREATININE FOR GFR 0.83 MG/DL (0.55-1.30); GLOMERULAR FILTRATION RATE > 60.0 (>39); GLUCOSE, FASTING 110 MG/DL (70-100); HDL CHOLESTEROL 45 MG/DL (>40); LDL CHOLESTEROL 112 MG/DL (<100); MAGNESIUM LEVEL 2.2 MG/DL (1.8-2.4); NON-HDL-C 140 MG/DL; POTASSIUM SERUM 4.4 MEQ/L (3.5-5.1); SODIUM LEVEL 137 MEQ/L (136-145); TOTAL PROTEIN 7.5 GM/DL (6.4-8.2); TRIGLYCERIDES LEVEL 139 MG/DL (<150)
== END ==
LOC: M WUC 08:12
PROVIDERS: ATTEND Family Medicine
DX: M79.641 Pain in right hand (principal); M79.642 Pain in left hand; E66.9 Obesity, unspecified

== ENCOUNTER → 2022-09-09 | Outpatient (REF) | payer MEDICARE, OTHER | LOC: M PLALAB 16:03 | PROVIDERS: ATTEND Nurse Practitioner Family | DX: Z12.4 Encounter for screening for malignant neoplasm of cervix (principal); R87.615 Unsatisfactory cytologic smear of cervix | CPT/HCPCS: 87624; G0123 ==

== ENCOUNTER → 2023-03-15 | Outpatient (CLI) | payer MEDICARE, OTHER | LOC: M WHC 08:25 | PROVIDERS: ATTEND Nurse Practitioner Family | DX: Z12.31 Encounter for screening mammogram for malignant neoplasm of breast (principal); Z85.3 Personal history of malignant neoplasm of breast ==

== ENCOUNTER → 2023-06-24 | Outpatient (CLI) | payer MEDICARE, OTHER | LOC: M WHC 09:13 | PROVIDERS: ATTEND Nurse Practitioner Family | DX: Z13.820 Encounter for screening for osteoporosis (principal); M85.89 Other specified disorders of bone density and structure, multiple sites ==

== ENCOUNTER → 2023-09-24 | Outpatient (REF) | payer MEDICARE, OTHER | LOC: M SFHCWAGY 13:21 | PROVIDERS: ATTEND Nurse Practitioner Family | DX: Z12.4 Encounter for screening for malignant neoplasm of cervix (principal) | CPT/HCPCS: 87624; G0123 ==

== ENCOUNTER 2024-01-31 16:51 | Emergency (ER) | payer MEDICARE, OTHER ==
[~2024-01-31] VITALS: Ht 172.7 cm; Wt 93.2 kg
[2024-01-31] MEDS: ACETAMINOPHEN 325 MG TAB PO ONE (19:27)
[2024-01-31] MEDS: traMADol 50 MG TAB PO ONE (19:27)
[2024-01-31] MEDS ORDERED: TRAM50TA2 PO (20:24)
[2024-01-31 20:50] VITALS: BP 138/69; TEMP 97.8; O2SAT 99
== END 2024-01-31 20:53 | disposition home or self-care (01) ==
LOC: M ED 16:51
DX: S83.92XA Sprain of unspecified site of left knee, initial encounter (principal); Y92.9 Unspecified place or not applicable; Y93.9 Activity, unspecified; Y99.9 Unspecified external cause status; Z79.810 Long term (current) use of selective estrogen receptor modulators (SERMs); Z79.899 Other long term (current) drug therapy

== ENCOUNTER → 2024-03-16 | Outpatient (CLI) | payer MEDICARE, OTHER ==
[~2024-03-16] MED LIST changes: +TRAM50TA2 PO
== END ==
LOC: M WHC 09:55
PROVIDERS: ATTEND Nurse Practitioner Family
DX: Z12.31 Encounter for screening mammogram for malignant neoplasm of breast (principal); R92.323 Mammographic fibroglandular density, bilateral breasts; Z85.3 Personal history of malignant neoplasm of breast

== ENCOUNTER → 2024-06-19 | Outpatient (CLI) | payer MEDICARE, OTHER ==
[2024-06-19 11:27] LABS: BASO # 0.1 10^3/uL (0.0-0.2); BASO % 1.1 % (0.0-1.0); EOS # 0.2 10^3/uL (0.0-0.5); HEMATOCRIT 40.1 % (36.0-47.0); HEMOGLOBIN 12.7 g/dl (12.0-15.5); LYMPH # 2.4 10^3/uL (1.5-5.0); LYMPH % 26.1 % (24.0-44.0); MEAN CORPUSCULAR HEMOGLOBIN 28.7 pg (27.0-33.0); MEAN CORPUSCULAR HGB CONC 31.7 g/dl (32.0-36.5); MEAN CORPUSCULAR VOLUME 90.7 fl (80.0-96.0); MONO # 0.7 10^3/uL (0.0-0.8); MONO % 7.2 % (2.0-8.0); NEUTROPHILS # 5.8 10^3/uL (1.5-8.5); NEUTROPHILS % 63.2 % (36.0-66.0); PLATELET COUNT, AUTOMATED 291 10^3/uL (150-450); RED BLOOD COUNT 4.42 10^6/uL (4.00-5.40); WHITE BLOOD COUNT 9.2 10^3/uL (4.0-10.0)
[2024-06-19 11:55] LABS: ALBUMIN 3.7 G/DL (3.2-5.2); ALKALINE PHOSPHATASE 107 U/L (46-116); ALT/SGPT 17 U/L (7.0-40); AST/SGOT 16 U/L (<34); BILIRUBIN,TOTAL 0.5 MG/DL (0.3-1.2); BLOOD UREA NITROGEN 18 MG/DL (9-23); CARBON DIOXIDE LEVEL 29 MMOL/L (20-31); CHLORIDE LEVEL 107 MMOL/L (98-107); CHOLESTEROL LEVEL 194 MG/DL (<200); CHOLESTEROL RISK RATIO 4.06 (<5); CREATININE FOR GFR 0.75 MG/DL (0.55-1.30); GLOMERULAR FILTRATION RATE > 60.0 (>39); GLUCOSE, FASTING 105 MG/DL (74-106); HDL CHOLESTEROL 47.7 MG/DL (>40); LDL CHOLESTEROL 126.5 MG/DL (<100); NON-HDL-C 146.3 MG/DL; POTASSIUM SERUM 4.1 MMOL/L (3.5-5.1); SODIUM LEVEL 141 MMOL/L (136-145); TOTAL PROTEIN 7.3 G/DL (5.7-8.2); TRIGLYCERIDES LEVEL 99 MG/DL (<150)
== END ==
LOC: M WUC 08:12
PROVIDERS: ATTEND Nurse Practitioner Family
DX: Z00.00 Encounter for general adult medical examination without abnormal findings (principal); Z79.899 Other long term (current) drug therapy

== ENCOUNTER → 2024-08-10 | Outpatient (CLI) | payer MEDICARE, OTHER ==
[~2024-08-10] MED LIST changes: +ISOVUE-300 61% 100ML VIAL As Ordered ONE; +LIDOCAINE 1% MDV 20ML VIAL As Ordered ONE; +methylPREDNISolone SUSP 40MG/ML 1ML VIAL (DEPO MEDROL) As Ordered ONE
== END ==
LOC: M RAD 14:31
PROVIDERS: ATTEND Physician Assistant Surgical
DX: M16.12 Unilateral primary osteoarthritis, left hip (principal)
CPT/HCPCS: 20610; 77002; J1010; Q9967

== ENCOUNTER → 2025-06-28 | Outpatient (CLI) | payer MEDICARE, OTHER ==
[~2025-06-28] MED LIST changes: -ISOVUE-300 61% 100ML VIAL As Ordered ONE; -LIDOCAINE 1% MDV 20ML VIAL As Ordered ONE; -methylPREDNISolone SUSP 40MG/ML 1ML VIAL (DEPO MEDROL) As Ordered ONE
[2025-06-28 13:56] LABS: BASO # 0.1 10^3/uL (0.0-0.2); BASO % 0.9 % (0.0-1.0); EOS # 0.3 10^3/uL (0.0-0.5); EOS % 2.9 % (0.0-3.0); LYMPH # 2.0 10^3/uL (1.5-5.0); LYMPH % 21.4 % (24.0-44.0); MONO # 0.7 10^3/uL (0.0-0.8); MONO % 7.6 % (2.0-8.0); NEUTROPHILS # 6.2 10^3/uL (1.5-8.5); NEUTROPHILS % 66.9 % (36.0-66.0); PLATELET COUNT, AUTOMATED 268 10^3/uL (150-450)
[2025-06-28 14:20] LABS: ALT/SGPT 17.0 U/L (7.0-40); AST/SGOT 21.0 U/L (<34); CALCIUM LEVEL 8.9 MG/DL (8.3-10.6); CARBON DIOXIDE LEVEL 32.0 MMOL/L (20-31); CHLORIDE LEVEL 102.0 MMOL/L (98-107); CHOLESTEROL LEVEL 193.0 MG/DL (<200); CHOLESTEROL RISK RATIO 3.81 (<5); CREATININE FOR GFR 0.74 MG/DL (0.55-1.30); GLOMERULAR FILTRATION RATE 85.4 (>39); LDL CHOLESTEROL 114.8 MG/DL (<100); NON-HDL-C 142.4 MG/DL; POTASSIUM SERUM 4.4 MMOL/L (3.5-5.1); SODIUM LEVEL 142.0 MMOL/L (136-145); TRIGLYCERIDES LEVEL 138.0 MG/DL (<150)
== END ==
LOC: M WUC 10:04
PROVIDERS: ATTEND Nurse Practitioner Family
DX: Z00.00 Encounter for general adult medical examination without abnormal findings (principal); Z79.899 Other long term (current) drug therapy